=== PATIENT | male | born 1965 | race Caucasian/White ===

== ENCOUNTER 2018-03-07 14:33 | Observation (INO) | payer BC ==
[2018-03-07] MEDS ORDERED: FENTANYL CITR 100 MCG/2 ML ONE (16:10)
[2018-03-07] MEDS ORDERED: NA CHLORIDE 0.9% 1,000 ML ONE (16:10)
[2018-03-07 16:28] LABS: Absolute Monocytes 0.7 K/uL (0.1-1.3); Absolute Neutrophil 4.3 K/uL (1.8-8.0); Basophils % 0.6 % (0-1.3); Eosinophils % 1.8 % (0-4.4); Hematocrit 48.5 % (39.6-49.0); Lymphocytes % 36.3 % (15.3-44.8); MPV 7.7 fL (7.6-11.3); Monocytes % 8.5 % (3.3-12.3); RBC Red Blood Cell Count 5.39 M/uL (4.33-5.43)
--- NOTE | 2018-03-07 16:38 | RAD REPORT ---
EXAM DESCRIPTION: Prisca Single View03/07/2018 4:20 pm CLINICAL HISTORY: Chest pain COMPARISON: 2016 FINDINGS: The lungs appear clear of acute infiltrate. The heart is normal size IMPRESSION: No acute abnormalities displayed
[2018-03-07 16:42] LABS: Protime INR 1.03
[2018-03-07 16:48] LABS: BUN Blood Urea Nitrogen 13 mg/dL (7-18); Bicarbonate 27 mmol/L (21-32); CKMB Creatine Kinase MB 2.1 ng/mL (0.3-3.6); Creatine Phosphokinase 191 U/L (39-308); Glucose Level 152 mg/dL (74-106); Potassium 4.1 mmol/L (3.5-5.1); Sodium Level 139 mmol/L (136-145); Troponin (Emerg Dept Use Only) < 0.02 ng/mL (0.0-0.045)
--- NOTE | 2018-03-07 16:56 | ER ---
Nurse's Notes [facility] Name: Jesus Mckinney Age: 52 yrs Sex: Male : 1965 Arrival Date: 03/07/2018 Time: 14:34 Bed 18 Private MD: Bunny Grigsby H Diagnosis: Cellulitis of left lower limb;Superficial venous thrombosis Presentation: 03/07 15:06 Presenting complaint: Patient states: increased pain and swelling to LLE, sent by PCP. sv Sent to r/o DVT. Reports hx of left ankle injury when child and has swelling but not usually this bad. Transition of care: patient was not received from another setting of care. Onset of symptoms was March 2018. Risk Assessment: Do you want to hurt yourself or someone else? Patient reports no desire to harm self or others. Initial Sepsis Screen: Does the patient meet any 2 criteria? No. Patient's initial sepsis screen is negative. Does the patient have a suspected source of infection? No. Patient's initial sepsis screen is negative. Care prior to arrival: None. 15:06 Method Of Arrival: Ambulatory sv 15:06 Acuity: JOELNE 3 sv Triage Assessment: 15:10 General: Appears in no apparent distress. uncomfortable, obese, well developed, sv Behavior is calm, cooperative, appropriate for age. Pain: Complains of pain in medial aspect of left calf, left medial ankle and medial aspect of left foot Pain currently is 5 out of 10 on a pain scale. Quality of pain is described as shooting, Pain began 2-3 days ago. Is continuous, Aggravated by increased activity, weight bearing. EENT: No signs and/or symptoms were reported regarding the EENT system. Neuro: Level of Consciousness is awake, alert, obeys commands, Oriented to person, place, time, situation, Moves all extremities. Full function Gait is steady, with limp. Speech is normal. Cardiovascular: Patient's skin is warm and dry. Pulses are palpable in right dorsalis pedis artery and left dorsalis pedis artery Edema is 3+ to left midcalf, left ankle and left foot pitting to left midcalf, left ankle and left foot. Respiratory: Airway is patent Respiratory effort is even, unlabored, Respiratory pattern is regular, symmetrical. Derm: Skin is normal. Historical: - Allergies: 15:20 PENICILLINS; sv - Home Meds: 15:20 Novolog 100 unit/mL Sub-Q soln 3 mL [Active]; gabapentin 600 mg oral tab [Active]; sv Celexa 40 mg Oral tab [Active]; bupropion HCl 300 mg Oral Tb24 [Active]; L-Methylfolate 15 mg oral tab [Active]; Invokana oral oral [Active]; Myrbetriq 50 mg oral Tb24 [Active]; trajenta [Active]; - PMHx: 15:20 TIA; Diabetes - IDDM; Depression; sv - PSHx: 15:20 bilateral knee; sv - Immunization history:: Adult Immunizations up to date, Flu vaccine is not up to date. - Social history:: Smoking status: Patient/guardian denies using tobacco, Patient/guardian denies using alcohol. - Ebola Screening: : No symptoms or risks identified at this time. Screenin:20 Abuse screen: Denies threats or abuse. Denies injuries from another. Nutritional sv screening: No deficits noted. Tuberculosis screening: No symptoms or risk factors identified. Fall Risk None identified. Assessment: 15:23 Reassessment: Patient appears in no apparent distress at this time. See triage sv assessment. 16:14 Reassessment: Patient appears in no apparent distress at this time. No changes from sv previously documented assessment. Patient and/or family updated on plan of care and expected duration. Pain level reassessed. Patient is alert, oriented x 3, equal unlabored respirations, skin warm/dry/pink. 16:37 Reassessment: Dr Alejandre at bedside. sv 17:10 Reassessment: Patient appears in no apparent distress at this time. No changes from sv previously documented assessment. Patient and/or family updated on plan of care and expected duration. Pain level reassessed. Patient is alert, oriented x 3, equal unlabored respirations, skin warm/dry/pink. 17:53 Reassessment: Patient appears in no apparent distress at this time. No changes from sv previously documented assessment. Patient and/or family updated on plan of care and expected duration. Pain level reassessed. Patient is alert, oriented x 3, equal unlabored respirations, skin warm/dry/pink. Vital Signs: 15:20 BP 135 / 80; Pulse 91; Resp 20; Temp 97.9(O); Pulse Ox 97% on R/A; Weight 129.27 kg; sv Height 5 ft. 8 in. (172.72 cm); Pain 5/10; 16:00 BP 109 / 78; Pulse 88; Resp 18; Pulse Ox 96% ; sv 17:00 BP 123 / 78; Pulse 87; Resp 18; Pulse Ox 98% ; sv 17:48 BP 115 / 73; Pulse 85; Resp 18; Pulse Ox 99% ; sv 15:20 Body Mass Index 43.33 (129.27 kg, 172.72 cm) sv ED Course: 14:34 Patient arrived in ED. sb2 14:34 Bunny Grigsby DO is Private Physician. sb2 15:06 Arm band placed on Patient placed in an exam room, on a stretcher, on pulse oximetry. sv 15:10 Lucía Henning FNP-C is PHCP. snw 15:10 Jorge Alberto Snider MD is Attending Physician. snw 15:15 Ann-Marie Hanson, MARSHA is Primary Nurse. sv 15:17 Triage completed. sv 15:20 Patient has correct armband on for positive identification. Placed in gown. Bed in low sv position. Call light in reach. Adult w/ patient. Pulse ox on. NIBP on. Door closed. Head of bed elevated. 15:21 Awaiting ED provider evaluation. sv 15:41 Extremity Venous Uni Ltd US In Process Unspecified. EDMS 15:42 Ultrasound completed. hr 16:07 Chest Single View XRAY In Process Unspecified. EDMS 16:15 Initial lab(s) drawn, by pa, sent to lab. First set of blood cultures drawn Second set mh5 of blood cultures drawn by pa. 16:16 X-ray(s) taken. sv 16:21 Inserted saline lock: 20 gauge in right antecubital area, using aseptic technique. mh5 Blood collected. 16:22 Sed Rate Sent. mh5 16:22 Basic Metabolic Panel Sent. mh5 16:23 Blood Culture Adult (2) Sent. 5 16:23 CBC with Diff Sent. mh5 16:23 Ckmb Sent. mh5 16:23 CPK Sent. 5 16:23 Lactate Sent. mh5 16:23 Procalcitonin Sent. 5 16:23 Protime (+inr) Sent. mh5 16:23 Ptt, Activated Sent. mh5 16:23 Troponin (emerg Dept Use Only) Sent. 5 16:45 EKG done, by medical radiation tech. reviewed by Lucía SOUZA. dt2 16:51 Brenna Alejandre MD is Hospitalizing Provider. snw 17:48 No provider procedures requiring assistance completed. Patient admitted, IV remains in sv place. intact. Administered Medications: 16:06 CANCELLED (cancelled): NS 0.9% (30 ml/kg) 30 ml/kg IV at bolus once; Sepsis Protocol sv 16:11 Drug: fentaNYL (PF) 50 mcg Route: IVP; Site: right antecubital; sv 16:30 Follow up: Response: No adverse reaction sv 16:11 Drug: NS 0.9% 1000 ml Route: IV; Rate: 1000 ml; Site: right antecubital; sv 17:46 Follow up: IV Status: Completed infusion; IV Intake: 1000ml ss 17:10 Drug: Clindamycin 600 mg Route: IVPB; Infused Over: 30 mins; Site: right antecubital; sv 17:54 Follow up: Response: No adverse reaction; IV Status: Completed infusion; IV Intake: 50mlsv Intake: 17:46 IV: 1000ml; Total: 1000ml. ss 17:54 IV: 50ml; Total: 1050ml. sv Outcome: 16:56 Decision to Hospitalize by Provider. snw 17:52 Admitted to Med/surg accompanied by tech, family with patient, via wheelchair, room sv 425, with chart, Report called to Jonna LARSON 17:52 Condition: stable 17:52 Instructed on the need for admit. 18:00 Patient left the ED. sv Signatures: Dispatcher [employer] EDAnn-Marie Wilson, RN RN Lucía Henning, HARLEY KAHNP-[place] Lillie Kennedy Shelby, RN RN Domitila Sterling 5 Teri Stephen 2 Soila Yuen dt2 Corrections: (The following items were deleted from the chart) 15:24 15:10 Cardiovascular: Patient's skin is warm and dry. Pulses are palpable in right sv dorsalis pedis artery and left dorsalis pedis artery sv 17:55 17:46 IV Status: Completed infusion [facility]
--- NOTE | 2018-03-07 16:56 | EDPHYS ---
Physician Documentation [facility] Name: Jesus Mckinney Age: 52 yrs Sex: Male : 1965 Arrival Date: 03/07/2018 Time: 14:34 Bed 18 Private MD: Bunny Grigsby H ED Physician Jorge Alberto Snider HPI: 03/07 15:45 This 52 yrs old Male presents to ER via Ambulatory with complaints of Leg snw Pain. 15:45 The patient presents with pain, that is acute, swelling, tenderness. The complaints snw affect the medial aspect of left calf. Context: The problem was sustained at home, resulted from an unknown cause, the patient can fully bear weight, the patient is able to ambulate, Problem is a result from a previous injury: distant left ankle fx. Onset: The symptoms/episode began/occurred gradually, 2 day(s) ago, and became worse today. Modifying factors: the symptoms are aggravated by weight bearing. Associated signs and symptoms: The patient has no apparent associated signs or symptoms. Treatment prior to arrival includes: no previous treatment. Severity of symptoms: At their worst the symptoms were moderate. The patient has not experienced similar symptoms in the past. The patient has been recently seen by a physician: at a clinic. Historical: - Allergies: 15:20 PENICILLINS; sv - Home Meds: 15:20 Novolog 100 unit/mL Sub-Q soln 3 mL [Active]; gabapentin 600 mg oral tab [Active]; sv Celexa 40 mg Oral tab [Active]; bupropion HCl 300 mg Oral Tb24 [Active]; L-Methylfolate 15 mg oral tab [Active]; Invokana oral oral [Active]; Myrbetriq 50 mg oral Tb24 [Active]; trajenta [Active]; - PMHx: 15:20 TIA; Diabetes - IDDM; Depression; sv - PSHx: 15:20 bilateral knee; sv - Immunization history:: Adult Immunizations up to date, Flu vaccine is not up to date. - Social history:: Smoking status: Patient/guardian denies using tobacco, Patient/guardian denies using alcohol. - Ebola Screening: : No symptoms or risks identified at this time. ROS: 15:39 Constitutional: Negative for fever, chills, and weight loss, Eyes: Negative for injury, snw pain, redness, and discharge, ENT: Negative for injury, pain, and discharge, Neck: Negative for injury, pain, and swelling, Cardiovascular: Negative for chest pain, palpitations, and edema, Respiratory: Negative for shortness of breath, cough, wheezing, and pleuritic chest pain, Abdomen/GI: Negative for abdominal pain, nausea, vomiting, diarrhea, and constipation, Back: Negative for injury and pain, : Negative for injury, bleeding, discharge, and swelling, Skin: Negative for injury, rash, and discoloration, Neuro: Negative for headache, weakness, numbness, tingling, and seizure. 15:39 MS/extremity: Positive for swelling, tenderness, of the left calf. Exam: 15:38 Constitutional: This is a well developed, well nourished patient who is awake, alert, snw and in no acute distress. Head/Face: Normocephalic, atraumatic. Eyes: Pupils equal round and reactive to light, extra-ocular motions intact. Lids and lashes normal. Conjunctiva and sclera are non-icteric and not injected. Cornea within normal limits. Periorbital areas with no swelling, redness, or edema. ENT: Nares patent. No nasal discharge, no septal abnormalities noted. Tympanic membranes are normal and external auditory canals are clear. Oropharynx with no redness, swelling, or masses, exudates, or evidence of obstruction, uvula midline. Mucous membranes moist. Neck: Trachea midline, no thyromegaly or masses palpated, and no cervical lymphadenopathy. Supple, full range of motion without nuchal rigidity, or vertebral point tenderness. No Meningismus. Chest/axilla: Normal chest wall appearance and motion. Nontender with no deformity. No lesions are appreciated. Cardiovascular: Regular rate and rhythm with a normal S1 and S2. No gallops, murmurs, or rubs. Normal PMI, no JVD. No pulse deficits. Respiratory: Lungs have equal breath sounds bilaterally, clear to auscultation and percussion. No rales, rhonchi or wheezes noted. No increased work of breathing, no retractions or nasal flaring. Abdomen/GI: Soft, non-tender, with normal bowel sounds. No distension or tympany. No guarding or rebound. No evidence of tenderness throughout. Back: No spinal tenderness. No costovertebral tenderness. Full range of motion. Neuro: Awake and alert, GCS 15, oriented to person, place, time, and situation. Cranial nerves II-XII grossly intact. Motor strength 5/5 in all extremities. Sensory grossly intact. Cerebellar exam normal. Normal gait. Psych: Awake, alert, with orientation to person, place and time. Behavior, mood, and affect are within normal limits. 15:38 Skin: Appearance: normal except for affected area, cellulitis, that is mild, on the medial aspect of left calf, edema and tenderness to left lower leg, + warmth. Vital Signs: 15:20 BP 135 / 80; Pulse 91; Resp 20; Temp 97.9(O); Pulse Ox 97% on R/A; Weight 129.27 kg; sv Height 5 ft. 8 in. (172.72 cm); Pain 5/10; 16:00 BP 109 / 78; Pulse 88; Resp 18; Pulse Ox 96% ; sv 17:00 BP 123 / 78; Pulse 87; Resp 18; Pulse Ox 98% ; sv 17:48 BP 115 / 73; Pulse 85; Resp 18; Pulse Ox 99% ; sv 15:20 Body Mass Index 43.33 (129.27 kg, 172.72 cm) sv MDM: 15:16 Patient medically screened. snw 16:30 Data reviewed: vital signs, nurses notes, lab test result(s), EKG. Data interpreted: snw Pulse oximetry: on room air is 95 %. Interpretation: acceptable. Counseling: I had a detailed discussion with the patient and/or guardian regarding: the historical points, exam findings, and any diagnostic results supporting the discharge/admit diagnosis, lab results, radiology results, the need for further work-up and treatment in the hospital. Physician consultation: Brenna Alejandre MD was called at 16:33, was contacted at 16:33, regarding admission, to the telemetry unit. 03/07 15:38 Order name: Sed Rate; Complete Time: 16:56 snw 03/07 15:38 Order name: Basic Metabolic Panel; Complete Time: 16:49 snw 03/07 15:38 Order name: Blood Culture Adult (2) snw 03/07 15:38 Order name: CBC with Diff; Complete Time: 16:56 snw 03/07 15:38 Order name: Ckmb; Complete Time: 16:49 snw 11/07 15:38 Order name: CPK; Complete Time: 16:49 snw 03/07 15:25 Order name: Extremity Venous Uni Ltd US; Complete Time: 17:50 snw 03/07 15:38 Order name: Lactate; Complete Time: 16:57 snw 03/07 15:38 Order name: Procalcitonin; Complete Time: 17:18 snw 03/07 15:38 Order name: Protime (+inr); Complete Time: 16:48 snw 03/07 15:38 Order name: Ptt, Activated; Complete Time: 16:48 snw 03/07 15:38 Order name: Troponin (emerg Dept Use Only); Complete Time: 16:49 snw 03/07 15:38 Order name: Chest Single View XRAY; Complete Time: 16:46 snw 03/07 15:38 Order name: EKG - Nurse/Tech; Complete Time: 16:13 snw 03/07 15:38 Order name: IV Saline Lock - Large Bore; Complete Time: 16:12 snw 03/07 15:38 Order name: Labs collected and sent; Complete Time: 16:12 snw 03/07 15:38 Order name: O2 Per Protocol; Complete Time: 16:06 snw 03/07 15:38 Order name: O2 Sat Monitoring; Complete Time: 16:06 snw Administered Medications: 16:06 CANCELLED (cancelled): NS 0.9% (30 ml/kg) 30 ml/kg IV at bolus once; Sepsis Protocol sv 16:11 Drug: fentaNYL (PF) 50 mcg Route: IVP; Site: right antecubital; sv 16:30 Follow up: Response: No adverse reaction sv 16:11 Drug: NS 0.9% 1000 ml Route: IV; Rate: 1000 ml; Site: right antecubital; sv 17:46 Follow up: IV Status: Completed infusion; IV Intake: 1000ml ss 17:10 Drug: Clindamycin 600 mg Route: IVPB; Infused Over: 30 mins; Site: right antecubital; sv 17:54 Follow up: Response: No adverse reaction; IV Status: Completed infusion; IV Intake: 50mlsv Disposition: 18:46 Co-signature as Attending Physician, Jorge Alberto Snider MD. rn Disposition: 03/07/18 16:56 Hospitalization ordered by Brenna Alejandre for Observation. Preliminary diagnosis are Cellulitis of left lower limb, Superficial venous thrombosis. - Bed requested for Telemetry/MedSurg (observation). - Status is Observation. sv - Condition is Stable. - Problem is new. - Symptoms have worsened. UTI on Admission? No Signatures: Dispatcher [employer] EDAnn-Marie Wilson RN RN Laverne Samuels RN RN dw Lucía Henning, HYDROELECTRIC PRODUCTION MANAGER-C HYDROELECTRIC PRODUCTION MANAGER-Csnw Jorge Alberto Snider MD MD rn Smirch, Shelby RN ss Corrections: (The following items were deleted from the chart) 15:45 15:38 Skin: Appearance: normal except for affected area, cellulitis, that is mild, on snw the medial aspect of left calf, edema and tenderness to left lower leg, snw 16:06 15:38 NS 0.9% (30 ml/kg) 30 ml/kg IV at bolus once; Sepsis Protocol ordered. [facility] 17:13 16:56 Hospitalization Ordered by Brenna Alejandre MD for Observation. Preliminary diagnosis dw is Cellulitis of left lower limb; Superficial venous thrombosis. Bed requested for Telemetry/MedSurg (observation). Status is Observation. Condition is Stable. Problem is new. Symptoms have worsened. UTI on Admission? No. sn 17:54 15:38 Accucheck ordered. [facility] 18:00 17:13 03/07/2018 16:56 Hospitalization Ordered by Brenna Alejandre MD for Observation. sv Preliminary diagnosis is Cellulitis of left lower limb; Superficial venous thrombosis. Bed requested for Telemetry/MedSurg (observation). Status is Observation. Condition is Stable. Problem is new. Symptoms have worsened. UTI on Admission? No. dw
[2018-03-07] MEDS ORDERED: CLINDAMYCIN 600MG/D5W 600 MG/50 ML BAG IV ONE (17:13)
--- NOTE | 2018-03-07 17:48 | RAD REPORT ---
EXAM DESCRIPTION: US - Extremity Venous Uni Ltd - 03/07/2018 4:00 pm CLINICAL HISTORY: Left leg pain and swelling COMPARISON: None. TECHNIQUE: Real-time sonographic evaluation of the left lower extremity deep venous system was perfo rmed. FINDINGS: Normal compressibility, flow augmentation, phasic flow and spontaneous flow are identified in the left lower extremity common femoral, superficial femoral, popliteal and posterior tibial vein s. No intraluminal filling defects seen within the left leg deep veins. Thrombus is present within the left greater saphenous vein from mid thigh to the distal leg. IMPRESSION: Extensive superficial venous thrombosis in the greater saphenous vein from mid thigh to near the ankle. No evidence for deep venous thrombosis.
--- NOTE | 2018-03-07 18:14 | P.HP ---
Certification for Inpatient Patient admitted to: Observation With expected LOS: <2 Midnights Practitioner: I am a practitioner with admitting privileges, knowledge of patient current condition, hospital course, and medical plan of care. Services: Services provided to patient in accordance with Admission requirements found in Title 42 Section 412.3 of the Code of Federal Regulations Patient History Date of Service: 03/07/18 Primary Care Provider: Dr. Grigsby Reason for admission: Left lower extremity edema and pain History of Present Illness: This is a 52-year-old male with history of diabetes type 2, depression who presented with left lower extremity edema and pain for the past couple of days, progressively worsening. He was seen at primary care office the day prior to admission, [place] but since then it has gotten progressively worse. Patient reports pain in his left lower extremity, worse around the left ankle. Patient does state he has chronic ankle pain as well as chronic skin color changes, from the injury from when he was young. But this is different for him as that more swollen and red. Denies any fevers, chills, chest pain, shortness of breath, abdominal pain, nausea or vomiting. At the time of my exam, patient is alert oriented x3 and in no acute distress. He was still complaining of left-sided lower extremity pain. Venous Doppler was positive for superficial venous thrombosis in the greater saphenous vein from mid thigh to the ankle on the left side. Allergies Penicillins Allergy (Unverified 09/10/15 19:29) Unknown - Past Medical/Surgical History Diabetic: Yes -: Diabetes -: Depression -: Neuropathy Review of Systems General: As per HPI, Unremarkable Eyes: Unremarkable ENT: As per HPI, Unremarkable Respiratory: As per HPI, Unremarkable Cardiovascular: As per HPI, Unremarkable Gastrointestinal: Unremarkable Genitourinary: Unremarkable Musculoskeletal: Leg Pain, Pedal edema, As per HPI Integumentary: Lesions, As per HPI Neurological: Unremarkable Lymphatics: Unremarkable Physical Examination - Physical Exam General: Alert, In no apparent distress, Oriented x3, Obese HEENT: Atraumatic, PERRLA, Mucous membr. moist/pink, EOMI, Sclerae nonicteric Neck: Supple, 2+ carotid pulse no bruit, No LAD, Without JVD or thyroid abnormality Respiratory: Clear to auscultation bilaterally, Normal air movement Cardiovascular: Regular rate/rhythm, Normal S1 S2 Gastrointestinal: Normal bowel sounds, No tenderness Musculoskeletal: No tenderness Integumentary: No significant lesion, Tenderness/swelling, Erythema, Warmth ( Left lower ext) Neurological: Normal gait, Normal speech, Normal strength at 5/5 x4 extr, Normal tone, Normal affect - Studies Laboratory Data (last 24 hrs) 03/07/18 16:00: PT 12.1, INR 1.03, APTT 35.0 03/07/18 16:00: Sodium 139, Potassium 4.1, BUN 13, Creatinine 1.00, Glucose 152 H 03/07/18 16:00: WBC 8.2, Hgb 16.2, Hct 48.5, Plt Count 239 Assessment and Plan - Plan This is a 52-year-old male with: Superficial thrombophlebitis of left lower extremity Lower extremity venous Doppler positive for superficial venous thrombosis in the greater saphenous vein from mid thigh to ankle on the left side. Lovenox 40 mg daily. May needed for to 14 day course as superficial thrombus seems to be large. Pain control with ibuprofen for anti-inflammatory effects Continue IV antibiotics. Will monitor and likely discontinue tomorrow Diabetes mellitus type 2 Monitor blood glucose a.c. HS, sliding scale ordered. Will restart home medications once reconciled Diabetic neuropathy Stable, will restart home medications once reconciled Depression Stable at this time. Will restart home medications once reconcile DVT prophylaxis: Lovenox, as above GI prophylaxis: Not Needed Diet: Diabetic Disposition: Admit to floor for observation. Symptomatic management. Likely home tomorrow Discharge Plan: Home Plan to discharge in: 24 Hours - Advance Directives Does patient have a Living Will: No Does patient have a Durable POA for Healthcare: No Physician Review: Patient Assessed, Agree with Above Assessment and Plan Time Spent Managing Pts Care (In Minutes): 45
[2018-03-07 18:24] VITALS: BMI 43.7
[2018-03-07] MEDS ORDERED: ONDANSETRON 4 MG/2 ML VIAL IV PRN (18:28)
[2018-03-07] MEDS ORDERED: IBUPROFEN 400 MG TAB PO PRN (18:28)
[2018-03-07] MEDS ORDERED: ALBUTEROL 2.5 MG/3 ML NEB SOL NEB PRN (18:28)
[2018-03-07] MEDS: INSULIN -REGULAR HUMAN 50 UNIT/0.5 ML ML SQ SCH (21:00)
[2018-03-07] MEDS: ENOXAPARIN 40 MG/0.4 ML SQ SCH (21:10)
--- NOTE | 2018-03-07 22:17 | EKG ---
Test Date: 2018-03-07 Test Time: 16:22:49 Asphalt Paving Foreman: CASS MEASUREMENT RESULTS: Intervals: Rate: 88 NC: 168 QRSD: 84 QT: 380 QTc: 481 [place]: P: 45 NC: 168 QRS: 23 T: 43 INTERPRETIVE STATEMENTS: Normal sinus rhythm Normal ECG Compared to ECG 09/10/2015 15:11:01 Sinus tachycardia no longer present Electronically Signed On 03-07-18 22:16:30 ACCREDITED PHARMACY TECHNICIAN by Bob Mayorga
[2018-03-08 00:16] LABS: Urine Appearance CLEAR; Urine Bilirubin NEGATIVE (NEG); Urine Blood NEGATIVE (NEG); Urine Color YELLOW; Urine Glucose 3+ (NEG); Urine Protein NEGATIVE (NEG); Urine Specific Gravity >=1.030 (1.005-1.030); Urine pH 6.5 (5.0-7.0)
[2018-03-08 00:20] LABS: Urine Microscopic Reflex NO UMIC
[2018-03-08] MEDS ORDERED: CLINDAMYCIN IV 150 MG/ML (6 mL) VIAL ONE (00:38)
[2018-03-08] MEDS ORDERED: NA CHLORIDE 0.9% 100 ML IV ONE (00:41)
[2018-03-08] MEDS: CLINDAMYCIN INJ 600 MG in NA CHLORIDE 0.9% 50 ML IV SCH ×2 (01:00→10:29)
[2018-03-08 04:33] LABS: Magnesium 2.3 mg/dL (1.8-2.4); Phosphorus 4.3 mg/dL (2.5-4.9); Potassium 4.1 mmol/L (3.5-5.1)
[2018-03-08] MEDS: INSULIN -REGULAR HUMAN 50 UNIT/0.5 ML ML SQ SCH ×3 (07:30→16:30)
[2018-03-08 10:11] VITALS: O2SAT 96
[2018-03-08] MEDS: ENOXAPARIN 40 MG/0.4 ML SQ SCH (10:28)
[2018-03-08 12:42] VITALS: TEMP 97.8
--- NOTE | 2018-03-08 15:24 | P.SSS ---
Patient History Date of Service: 03/08/18 Primary Care Provider: Dr. Grigsby Reason for admission: Left lower extremity edema and pain History of Present Illness: This is a 52-year-old male with history of diabetes type 2, depression who presented with left lower extremity edema and pain for the past couple of days, progressively worsening. He was seen at primary care office the day prior to admission, Paste but since then it has gotten progressively worse. Patient reports pain in his left lower extremity, worse around the left ankle. Patient does state he has chronic ankle pain as well as chronic skin color changes, from the injury from when he was young. But this is different for him as that more swollen and red. Denies any fevers, chills, chest pain, shortness of breath, abdominal pain, nausea or vomiting. At the time of my exam, patient is alert oriented x3 and in no acute distress. He was still complaining of left-sided lower extremity pain. Venous Doppler was positive for superficial venous thrombosis in the greater saphenous vein from mid thigh to the ankle on the left side. Allergies Penicillins Allergy (Verified 03/07/18 19:42) Unknown Home Medications: Bupropion *Xl* [Wellbutrin XL*] 300 mg PO DAILY 03/08/18 Canagliflozin [Invokana] 300 mg PO DAILY 03/08/18 Citalopram Hydrobromide [Citalopram HBr] 40 mg PO DAILY 03/08/18 Clindamycin HCl 300 mg PO Q8HR #15 capsule 03/08/18 Enoxaparin Sodium [Lovenox 40 MG INJ*] 40 mg SQ DAILY 45 Days syr 03/08/18 Gabapentin 600 mg PO BEDTIME 03/08/18 Insulin Aspart Protam & Aspart [Novolog Mix 70-30 Flexpen Syrn] 40 units SQ TID 03/08/18 Levomefolate Calcium [l-Methylfolate Calcium] 15 mg PO DAILY 03/08/18 Linagliptin [Tradjenta] 5 mg PO DAILY 03/08/18 Mirabegron [Myrbetriq] 50 mg PO BEDTIME 03/08/18 - Past Medical/Surgical History Has patient received pneumonia vaccine in the past: No Diabetic: Yes -: Diabetes -: Depression -: Neuropathy -: arthoscopic knee sx juan ramon - Family History Mother -: Heart disease, Hypertension Father -: Cancer - Social History Smoking Status: Never smoker Alcohol use: No CD- Drugs: No Caffeine use: Yes Place of Residence: Home Review of Systems As noted Physical Examination - Vital Signs Temperature: 97.8 F Blood Pressure: 135/84 Pulse: 85 Respirations: 18 Pulse Ox (%): 95 - Physical Exam General: Alert, In no apparent distress, Oriented x3 HEENT: Atraumatic, PERRLA, Mucous membr. moist/pink, EOMI, Sclerae nonicteric Neck: Supple, 2+ carotid pulse no bruit, No LAD, Without JVD or thyroid abnormality Respiratory: Clear to auscultation bilaterally, Normal air movement Cardiovascular: Regular rate/rhythm, Normal S1 S2 Gastrointestinal: Normal bowel sounds, No tenderness Musculoskeletal: No tenderness Integumentary: No rashes, Tenderness/swelling (Improved), Erythema, Warmth Neurological: Normal gait, Normal speech, Normal strength at 5/5 x4 extr, Normal tone, Normal affect Lymphatics: No axilla or inguinal lymphadenopathy - Studies Laboratory Data (last 24 hrs) 03/07/18 16:00: PT 12.1, INR 1.03, APTT 35.0 03/07/18 16:00: Sodium 139, Potassium 4.1, BUN 13, Creatinine 1.00, Glucose 152 H 03/07/18 16:00: WBC 8.2, Hgb 16.2, Hct 48.5, Plt Count 239 Treatment Summary: Patient was admitted for observation overnight. For his superficial venous thrombosis with overlying cellulitis, He was started on Lovenox 40 mg 4 times daily and clindamycin IV. His duplex was positive for superficial venous thrombosis in the greater saphenous vein from mid thigh to near ankle on left side. VTE risk factors include being a male, large superficial venous thrombosis, absence of varicose veins. Discussed prophylactic anticoagulation with patient due to above listed is factors. Patient agrees, he was started on Lovenox 40 mg subQ for 45 days. He was instructed to follow up with is primary care physician. Patient verbalized understanding of all instructions and directions. He was discharged home in a stable manner. - Disposition Discharge Date: 03/08/18 Disposition: ROUTINE DISCHARGE Condition: GOOD Patient Discharge Instructions: 1) superficial venous thrombosis: If since this was a fairly large thrombus in the superficial vein, will continue and blood thinner with Lovenox injection for the next 45 days. Prescription has been sent to pharmacy. 2) superficial thrombophlebitis with overlying cellulitis: as discussed, best pain control for the of thrombophlebitis if any anti-inflammatory medication like Motrin. Undo we will also complete a course of the antibiotic clindamycin for the next 5 days. Prescription has been sent to the pharmacy. Please follow up with the primary care physician in the next 1 week Diet: Regular Activity: Ad mc Physician Review: Patient Assessed, Agree with Above Assessment and Plan Time Spent Managing Pts Care (In Minutes): 45
[2018-03-08 17:41] VITALS: BP 119/75
[2018-03-08] MEDS ORDERED: GABAPENTIN 300 MG CAP PO SCH (21:00)
== END 2018-03-08 17:10 | disposition home or self-care (01) ==
LOC: ER 14:33 → ERHOLD 17:00 → 4TH 17:47
PROVIDERS: ADMIT Family Medicine; ATTEND Family Medicine
DX: I80.02 Phlebitis and thrombophlebitis of superficial vessels of left lower extremity (principal); L03.116 Cellulitis of left lower limb; E11.40 Type 2 diabetes mellitus with diabetic neuropathy, unspecified; F32.9 Major depressive disorder, single episode, unspecified; Z88.0 Allergy status to penicillin
CPT/HCPCS: 36415; 71045; 80048; 81003; 82550; 82553; 82962; 83605; 83735; 84100; 84145; 84484; 85025; 85610; 85652; 85730; 87040; 93005; 93971; 94760; 96361; 96365; 96375; 99285; G0378; J1650; J3010; J7030

== ENCOUNTER 2021-07-02 08:44 | Emergency (ER) | payer BC ==
[2021-07-02 10:10] LABS: Absolute Lymphocytes (CBC) 2.8 K/uL (0.7-4.9); Hematocrit 46.8 % (39.6-49.0); Lymphocytes % 34.9 % (15.3-44.8); MPV 7.4 fL (7.6-11.3); RBC Red Blood Cell Count 5.34 M/uL (4.33-5.43)
[2021-07-02 10:14] LABS: Protime INR 1.05
[2021-07-02 10:33] LABS: ALT/SGPT 24 U/L (12-78); AST/SGOT 11 U/L (15-37); Albumin 3.8 g/dL (3.4-5.0); Alkaline Phosphatase 78 U/L (45-117); BUN Blood Urea Nitrogen 16 mg/dL (7-18); Bicarbonate 24 mmol/L (21-32); Bilirubin Direct 0.2 mg/dL (0-0.2); Bilirubin Total 0.8 mg/dL (0.2-1.0); Glucose Level 183 mg/dL (74-106); Magnesium 2.6 mg/dL (1.8-2.4); NT PRO-BNP 32 pg/mL (<125); Protein, Total 7.1 g/dL (6.4-8.2); Sodium Level 138 mmol/L (136-145)
[2021-07-02 10:35] LABS: Troponin High Sensitivity < 3.00 pg/mL (<58.9)
--- NOTE | 2021-07-02 10:56 | RAD REPORT ---
EXAM DESCRIPTION: RAD - Chest Single View - 07/02/2021 10:29 am CLINICAL HISTORY: CHEST PAIN COMPARISON: Chest Single View dated 03/07/2018; Chest Single View dated 09/10/2015; CHEST PA AND LAT 2 VIEW dated 03/12/2010; CHEST SINGLE VIEW dated 12/16/2008 FINDINGS: Lines: None. Lungs: No evidence of edema or pneumonia. Pleural: No significant pleural effusions or pneumothorax. Cardiac: The heart size is within normal limits. Bones: No acute fractures. Other: IMPRESSION: No acute cardiopulmonary disease.
[2021-07-02 11:11] LABS: SARS-COV-2 RT PCR NEGATIVE (NEGATIVE)
--- NOTE | 2021-07-02 12:16 | ER ---
Nurse's Notes [facility] Name: Jesus Mckinney Age: 55 yrs Sex: Male : 1965 Arrival Date: 07/02/2021 Time: 09:06 Bed 15 Private MD: Diagnosis: Chest pain, unspecified Presentation: 07/02 09:10 Chief complaint: Patient states: chest pain. Coronavirus screen: Client denies travel cb5 out of the [place] in the last 14 days. Client indicates they have traveled out of the [place] in the last 14 days. Ebola Screen: Patient negative for fever greater than or equal to 101.5 degrees Fahrenheit, and additional compatible Ebola Virus Disease symptoms Patient denies exposure to infectious person. Initial Sepsis Screen: Does the patient meet any 2 criteria? No. Patient's initial sepsis screen is negative. Does the patient have a suspected source of infection? No. Patient's initial sepsis screen is negative. Risk Assessment: Do you want to hurt yourself or someone else? Patient reports no desire to harm self or others. 09:10 Method Of Arrival: EMS: [facility] cb5 09:10 Acuity: JOLENE 3 cb5 Triage Assessment: 09:10 General: Appears in no apparent distress. comfortable, Behavior is calm, cooperative, cb5 appropriate for age. Pain: Complains of pain in chest Pain currently is 6 out of 10 on a pain scale. Historical: - PMHx: 09:58 Depression; Diabetes - IDDM; TIA; cb5 - Immunization history:: Adult Immunizations up to date. - Social history:: Smoking status: unknown. Screenin:30 Abuse screen: Denies threats or abuse. Denies injuries from another. Nutritional cb5 screening: No deficits noted. Tuberculosis screening: No symptoms or risk factors identified. Fall Risk None identified. Assessment: 09:10 General: Appears in no apparent distress. Behavior is calm, cooperative, appropriate cb5 for age. Pain: Complains of pain in chest Pain currently is 6 out of 10 on a pain scale. Neuro: No deficits noted. Level of Consciousness is awake, alert, obeys commands, Oriented to person, place, time, situation, Appropriate for age. Cardiovascular: No deficits noted. Reports chest pain. Respiratory: No deficits noted. GI: No deficits noted. : No deficits noted. EENT: No deficits noted. Derm: No deficits noted. Musculoskeletal: No deficits noted. 10:15 Reassessment: Patient and/or family updated on plan of care and expected duration. Pain cb5 level reassessed. Vital Signs: 09:10 BP 120 / 84; Pulse 72; Resp 16; Temp 98.6; Pulse Ox 98% ; Pain 0/10; cb5 12:24 BP 130 / 92; Pulse 78; Resp 18; Pulse Ox 99% on R/A; ab2 ED Course: 09:06 Patient arrived in ED. eb 09:07 Waqar Echeverria PA is PHCP. jmm 09:07 Kareem Esposito MD is Attending Physician. jmm 09:10 Arm band placed on right wrist. cb5 09:11 EKG done, by ED staff, reviewed by Waqar RUSS. em1 09:30 Call light in reach. Side rails up X 1. cb5 09:37 Fabi Finney, RN is Primary Nurse. cb5 09:53 Triage completed. cb5 09:55 COVID-19/FLU A+B (Document "Date of Onset" if Symptomatic) Sent. mb7 10:29 XRAY Chest (1 view) In Process Unspecified. EDMS 12:15 Ed Jeffries MD is Referral Physician. jmm 12:25 IV discontinued, intact, bleeding controlled, No redness/swelling at site. Pressure ab2 dressing applied. Administered Medications: No medications were administered Outcome: 12:16 Discharge ordered by MD. jmm 12:25 Discharged to home ambulatory, with family. ab2 12:25 Condition: good 12:25 Discharge instructions given to patient, family, Instructed on discharge instructions, follow up and referral plans. Demonstrated understanding of instructions, follow-up care, Prescriptions given X 12:25 Patient left the ED. ab2 Signatures: Dispatcher [employer] EDMS Waqar Echeverria PA PA jmm Martinez, Eric em1 Anita Hayden Mary mb7 Fabi Finney, RN RN cb5 Robin Gates ab2
--- NOTE | 2021-07-02 12:16 | EDPHYS ---
Physician Documentation [facility] Name: Jesus Mckinney Age: 55 yrs Sex: Male : 1965 Arrival Date: 07/02/2021 Time: 09:06 Bed 15 Private MD: ED Physician Kareem Esposito HPI: 07/02 12:19 This 55 yrs old Male presents to ER via EMS with complaints of Chest Pain. jmm 12:19 The patient or guardian reports chest pain that is located primarily in the substernal [facility] area. Onset: gradually, at 07:00. The pain does not radiate. Associated signs and symptoms: Pertinent positives: cough. The chest pain is described as a pressure. Duration: The patient or guardian reports a single episode, that is still ongoing, but improving. Modifying factors: The symptoms are alleviated by nothing. the symptoms are aggravated by. This is a 55 year old male with a history of dm, that presents to the ED with complaints substernal chest pain beginning at approx 7 am today. Pain has decreased. Denies shortness of breath. Patient is currently taking eliquis for a DVT. Historical: - PMHx: 09:58 Depression; Diabetes - IDDM; TIA; cb5 - Immunization history:: Adult Immunizations up to date. - Social history:: Smoking status: unknown. ROS: 12:19 Constitutional: Negative for fever, chills, and weight loss. jmm 12:19 Cardiovascular: Positive for chest pain. 12:19 Respiratory: Positive for cough, Negative for shortness of breath. 12:19 All other systems are negative. Exam: 12:19 Head/Face: atraumatic. Eyes: EOMI, no conjunctival erythema appreciated ENT: Moist [facility] Mucus Membranes Neck: Trachea midline, Supple Chest/axilla: Normal chest wall appearance and motion. Cardiovascular: Regular rate and rhythm. No edema appreciated Respiratory: Normal respirations, no respiratory distress appreciated Abdomen/GI: Non distended, soft Back: Normal ROM Skin: General appearance color normal MS/ Extremity: Moves all extremities, no obvious deformities appreciated, no edema noted to the lower extremities Neuro: Awake and alert Psych: Behavior is normal, Mood is normal, Patient is cooperative and pleasant 12:19 Constitutional: The patient appears alert, awake, anxious, uncomfortable. Vital Signs: 09:10 BP 120 / 84; Pulse 72; Resp 16; Temp 98.6; Pulse Ox 98% ; Pain 0/10; cb5 12:24 BP 130 / 92; Pulse 78; Resp 18; Pulse Ox 99% on R/A; ab2 MDM: 09:11 Patient medically screened. omega 12:05 Data reviewed: vital signs, nurses notes. Counseling: I had a detailed discussion with lissett the patient and/or guardian regarding: the historical points, exam findings, and any diagnostic results supporting the discharge/admit diagnosis, lab results, radiology results, the need for outpatient follow up, the need for further work-up and treatment in the hospital. 07/02 09:09 Order name: Basic Metabolic Panel; Complete Time: 10:43 [facility] 07/02 09:09 Order name: CBC with Diff; Complete Time: 10:13 [facility] 07/02 09:09 Order name: LFT's; Complete Time: 10:43 [facility] 07/02 09:09 Order name: Magnesium; Complete Time: 10:43 [facility] 07/02 09:09 Order name: NT PRO-BNP; Complete Time: 10:43 [facility] 07/02 09:09 Order name: PT-INR; Complete Time: 10:16 [facility] 07/02 09:09 Order name: Troponin HS; Complete Time: 10:43 [facility] 07/02 09:09 Order name: XRAY Chest (1 view); Complete Time: 11:16 [facility] 07/02 09:09 Order name: EKG; Complete Time: 09:10 [facility] 07/02 09:09 Order name: Cardiac monitoring; Complete Time: 10:49 [facility] 07/02 09:09 Order name: EKG - Nurse/Tech; Complete Time: 09:25 [facility] 07/02 09:09 Order name: IV Saline Lock; Complete Time: 10:50 [facility] 07/02 09:09 Order name: Labs collected and sent; Complete Time: 10:50 [facility] 07/02 09:10 Order name: COVID-19/FLU A+B (Document "Date of Onset" if Symptomatic); Complete Time: [facility] 11:16 07/02 09:09 Order name: O2 Per Protocol; Complete Time: 10:50 [facility] 07/02 09:09 Order name: O2 Sat Monitoring; Complete Time: 10:50 jm Administered Medications: No medications were administered Disposition Summary: 07/02/21 12:16 Discharge Ordered Location: Home jmm Condition: Stable jmm Diagnosis - Chest pain, unspecified jmm Followup: jmm - With: Ed Jeffries MD - When: 2 - 3 days - Reason: Recheck today's complaints, Continuance of care, Re-evaluation by your physician Discharge Instructions: - Discharge Summary Sheet jmm - Nonspecific Chest Pain, Adult jmm Forms: - Medication Reconciliation Form jmm - Thank You Letter jmm - Antibiotic Education jmm - Prescription Opioid Use jmm - Work release form ab2 Signatures: Dispatcher [employer] EDKareem Spence MD MD cha Mickail, Joel, PA PA Fabi Conrad, RN RN cb5
[2021-07-02 12:30] VITALS: TEMP 98.6
[2021-07-02 12:32] VITALS: BP 130/92; O2SAT 99
--- NOTE | 2021-07-03 12:46 | EKG ---
Test Date: 2021-07-02 Test Time: 09:11:36 Detacker: WILLIAM MEASUREMENT RESULTS: Intervals: Rate: 100 AK: 166 QRSD: 80 QT: 372 QTc: 479 [place]: P: 43 AK: 166 QRS: 29 T: 63 INTERPRETIVE STATEMENTS: Normal sinus rhythm Normal ECG Compared to ECG 03/07/2018 16:22:49 No significant changes Electronically Signed On 07-03-21 12:45:02 OPTICAL LENS MANUFACTURING TECH by Noah Hawkins
== END 2021-07-02 12:25 | disposition home or self-care (01) ==
LOC: ER 08:44
DX: R07.9 Chest pain, unspecified (principal); Z20.822 Contact with and (suspected) exposure to COVID-19
CPT/HCPCS: 93005; 85025; 80048; 36415; 83735; 85610; 80076; 84484; 83880; 0240U; 71045; 99284